=== PATIENT | male | born 1945 | race African-American/Black ===

== ENCOUNTER 2022-12-11 09:45 | Inpatient (IN) | payer OTHER ==
[2022-12-11] MEDS ORDERED: niCARdipine 25 MG/10 ML SDV ONE ×2 (10:01→12:12)
[2022-12-11 10:59] LABS: #Eosinphils 0.3 thou/uL (0.0-0.7); #Monocytes 0.4 thou/uL (0.11-0.59); #Neutrophils 3.7 thou/uL (1.40-6.50); %Basophils 0.6 % (0.0-1.0); %Eosinophils 4.5 % (0.0-10.0); %Lymphocytes 29.3 % (21.0-51.0); %Monocytes 6.4 % (0.0-10.0); %Neutrophils 58.9 % (42.0-75.0); Hematocrit 39.5 % (42.0-52.0); Hemoglobin 13.3 g/dL (14.0-18.0); Mean Corpuscular HGB CONC 33.7 g/dL (32.0-36.0); Mean Corpuscular Hemoglobin 30.7 pg (27.0-31.0); Mean Corpuscular Volume 91.2 fl (78.0-98.0); Mean Platelet Volume 10.7 fL (7.4-10.4); Platelet Count 192 10x3/uL (130-400); RBC Distribution Width 13.3 % (11.5-14.5); Red Blood Cell (RBC) Count 4.33 mill/uL (4.70-6.10); White Blood Cell (WBC) Count 6.3 10x3/uL (4.8-10.8)
[2022-12-11] MEDS ORDERED: Ipratropium/Albuterol 3 ML NEB NEB PRN (11:06)
[2022-12-11] MEDS ORDERED: Morphine 2 MG/ML VIAL SLOW IVP PRN (11:06)
[2022-12-11 11:15] LABS: INR-International Normal Ratio 1.1; PTT 31.9 sec (22.9-36.1); Prothrombin Time 15.1 sec (12.0-14.7)
[2022-12-11 11:25] LABS: ALT (SGPT) 12 U/L (8-55); AST (SGOT) 24 U/L (5-34); Albumin 3.9 g/dL (3.4-4.8); Alkaline Phosphatase 103 U/L (40-110); Anion Gap 11 mmol/L (10-20); BUN (Urea Nitrogen) 10 mg/dL (8.4-25.7); Bilirubin, Total 1.4 mg/dL (0.2-1.2); Calc. Creatinine Clearance 0 mL/min (70-130); Calcium 8.7 mg/dL (7.8-10.44); Carbon Dioxide 25 mmol/L (23-31); Chloride 106 mmol/L (98-107); Estimated GFR 64; Globulin 3.5 g/dL (2.4-3.5); Glucose 101 mg/dL (83-110); Magnesium 1.9 mg/dL (1.6-2.6); Potassium 3.6 mmol/L (3.5-5.1); Protein, Total 7.4 g/dL (5.8-8.1); Sodium 138 mmol/L (136-145)
[2022-12-11 11:29] LABS: Troponin I 0.011 ng/mL (< 0.028)
[2022-12-11] MEDS ORDERED: Magnevist 469MG/ML 20 ML VIAL ONE (11:29)
[2022-12-11] MEDS ORDERED: Furosemide 40 MG/4 ML VIAL SLOW IVP SCH (12:15)
[2022-12-11] MEDS: Ondansetron PF 4 MG/2 ML Vial IVP PRN (12:55)
[2022-12-11] MEDS: Sodium Chloride 0.9% 1,000 ML IV SCH ×2 (13:26→23:28)
[2022-12-11] MEDS: Acetaminophen 325 MG TAB PO SCH ×2 (13:27→17:11)
[2022-12-11 14:10] LABS: Bacteria/HPF None Seen HPF (None Seen); Bilirubin Negative (Negative); Blood, Urine Negative (Negative); CAUTI Indications for Culture Alt mental st,lethar; Clarity Clear (Clear); Glucose, Urine (Dipstick) 100 mg/dL (Negative); Ketone, Urine Negative (Negative); Leukocyte Negative Leu/uL (Negative); Nitrite Negative (Negative); Protein, Urine (Dipstick) 30 mg/dL (Neg-Trace); RBC/HPF 0-3 HPF (0-3); Specific Gravity, Urine 1.008 (1.002-1.036); Squamous Epithelial None Seen HPF (0-3); WBC/HPF 0-3 HPF (0-3)
[2022-12-11] MEDS ORDERED: Electrolyte Replacement Protocol 1 EACH FS SCH (14:10)
[2022-12-11 14:11] LABS: Urine Culture Reflex No No
[2022-12-11 14:13] LABS: Amphetamine Not Detected (NotDetected); Barbiturates Screen Not Detected (NotDetected); Benzodiazepine Screen Not Detected (NotDetected); Cocaine Metabolite Screen Not Detected (NotDetected); Methadone Not Detected (NotDetected); Methamphetamine Not Detected (NotDetected); Opiate Screen Not Detected (NotDetected); Oxycodone Screen Not Detected (NotDetected); Phencyclidine (PCP) Not Detected (NotDetected); THC/Cannabinoid Screen Not Detected (NotDetected); Tricyclic Screen Not Detected (NotDetected)
[2022-12-11 15:26] LABS: Potassium 3.2 mmol/L (3.5-5.1)
[2022-12-11] MEDS ORDERED: Magnesium 2 GM/50 ML(in water) 2 GM in Premix Bag 1 BAG IVPB SCH (17:00)
[2022-12-11] MEDS: Potassium Chloride 20 MEQ in Premix Bag 1 BAG IVPB SCH ×2 (17:01→19:24)
[2022-12-11] MEDS ORDERED: Famotidine 20 MG TAB PO SCH (21:00)
[2022-12-11] MEDS: Famotidine/PF 20 mg/2ml Vial SLOW IVP SCH (21:37)
[2022-12-12] MEDS: Acetaminophen 325 MG TAB PO SCH ×2 (02:33→06:26)
[2022-12-12] MEDS: niCARdipine 50 MG, Admixture Fee 1 EACH in Sodium Chloride 0.9% 250 ML 230 ML IV SCH (02:34)
[2022-12-12 04:24] LABS: #Monocytes 0.7 thou/uL (0.11-0.59); #Neutrophils 4.6 thou/uL (1.40-6.50); %Basophils 0.4 % (0.0-1.0); %Eosinophils 0.5 % (0.0-10.0); %Lymphocytes 29.5 % (21.0-51.0); %Monocytes 8.9 % (0.0-10.0); %Neutrophils 60.4 % (42.0-75.0); Hematocrit 37.6 % (42.0-52.0); Hemoglobin 12.8 g/dL (14.0-18.0); Mean Corpuscular Hemoglobin 30.4 pg (27.0-31.0); Mean Corpuscular Volume 89.3 fl (78.0-98.0); Mean Platelet Volume 11.1 fL (7.4-10.4); Platelet Count 200 10x3/uL (130-400); RBC Distribution Width 13.5 % (11.5-14.5); Red Blood Cell (RBC) Count 4.21 mill/uL (4.70-6.10); White Blood Cell (WBC) Count 7.6 10x3/uL (4.8-10.8)
[2022-12-12 04:56] LABS: INR-International Normal Ratio 1.2; PTT 30.9 sec (22.9-36.1)
[2022-12-12 04:58] LABS: Anion Gap 10 mmol/L (10-20); BUN (Urea Nitrogen) 9 mg/dL (8.4-25.7); Calc. Creatinine Clearance 66 mL/min (70-130); Calcium 8.3 mg/dL (7.8-10.44); Carbon Dioxide 24 mmol/L (23-31); Chloride 107 mmol/L (98-107); Estimated GFR 68; Glucose 88 mg/dL (83-110); Magnesium 2.1 mg/dL (1.6-2.6); Potassium 3.2 mmol/L (3.5-5.1); Sodium 138 mmol/L (136-145)
[2022-12-12] MEDS: Sodium Chloride 0.9% 1,000 ML IV SCH ×2 (06:13→13:26)
[2022-12-12] MEDS: Potassium Chloride 20 MEQ in Premix Bag 1 BAG IVPB SCH ×2 (06:31→08:25)
[2022-12-12] MEDS: Famotidine/PF 20 mg/2ml Vial SLOW IVP SCH ×2 (08:25→20:13)
[2022-12-12] MEDS ORDERED: Minoxidil 10 MG TAB PO SCH (10:15)
[2022-12-12] MEDS ORDERED: Carvedilol 25 MG TAB PO SCH (10:15)
[2022-12-12] MEDS ORDERED: Lisinopril 20 MG TAB PO SCH (10:15)
[2022-12-12] MEDS ORDERED: Labetalol HCl 100 MG/20 ML VIAL ONE (12:33)
[2022-12-12] MEDS: Acetaminophen 500 MG TAB PO SCH ×2 (13:26→18:15)
[2022-12-12] MEDS: Minoxidil 10 MG TAB PO SCH (20:09)
[2022-12-12] MEDS: Furosemide 20 MG TAB PO SCH (20:09)
[2022-12-12] MEDS: Terazosin HCl 1 MG CAP PO SCH (20:10)
[2022-12-12] MEDS: Atorvastatin Calcium 20 MG TAB PO SCH (20:11)
[2022-12-12] MEDS: Carvedilol 25 MG TAB PO SCH (20:11)
[2022-12-12] MEDS: Terazosin HCl 5 MG CAP PO SCH (20:20)
[2022-12-13] MEDS: Sodium Chloride 0.9% 1,000 ML IV SCH ×2 (01:01→05:26)
[2022-12-13] MEDS: Acetaminophen 500 MG TAB PO SCH ×5 (01:01→21:51)
[2022-12-13] MEDS: Ondansetron PF 4 MG/2 ML Vial IVP PRN (02:54)
[2022-12-13] MEDS: niCARdipine 50 MG, Admixture Fee 1 EACH in Sodium Chloride 0.9% 250 ML 230 ML IV SCH (03:55)
[2022-12-13] MEDS: Labetalol HCl 100 MG/20 ML VIAL SLOW IVP PRN ×2 (04:28→10:04)
[2022-12-13] MEDS: Levothyroxine Sodium 25 MCG TAB PO SCH (06:05)
[2022-12-13] MEDS: Lisinopril 20 MG TAB PO SCH (08:00)
[2022-12-13] MEDS: Minoxidil 10 MG TAB PO SCH ×2 (08:00→21:50)
[2022-12-13] MEDS: Famotidine/PF 20 mg/2ml Vial SLOW IVP SCH ×2 (08:00→21:48)
[2022-12-13] MEDS: Furosemide 20 MG TAB PO SCH ×2 (08:01→21:48)
[2022-12-13] MEDS: Potassium Chloride 10 MEQ TAB PO SCH (08:01)
[2022-12-13] MEDS: Carvedilol 25 MG TAB PO SCH ×2 (08:01→21:48)
[2022-12-13] MEDS: Amlodipine 10 MG TAB PO SCH (08:34)
[2022-12-13 08:49] LABS: Anion Gap 13 mmol/L (10-20); BUN (Urea Nitrogen) 11 mg/dL (8.4-25.7); Calc. Creatinine Clearance 65 mL/min (70-130); Calcium 8.5 mg/dL (7.8-10.44); Carbon Dioxide 20 mmol/L (23-31); Chloride 106 mmol/L (98-107); Estimated GFR 69; Glucose 108 mg/dL (83-110); Magnesium 1.9 mg/dL (1.6-2.6); Phosphorus 2.2 mg/dL (2.3-4.7); Potassium 3.5 mmol/L (3.5-5.1); Sodium 135 mmol/L (136-145)
[2022-12-13] MEDS ORDERED: Magnesium 2 GM/50 ML(in water) 2 GM in Premix Bag 1 BAG IVPB SCH (09:45)
[2022-12-13] MEDS ORDERED: Potassium Phosphate 30 MMOL in Sodium Chloride 0.9% 250 ML 250 ML IVPB SCH (12:00)
[2022-12-13] MEDS ORDERED: hydrALAZINE 20 MG/ML VIAL ONE (13:20)
[2022-12-13] MEDS: hydrALAZINE 25 MG TAB PO SCH ×2 (13:45→21:49)
[2022-12-13] MEDS ORDERED: hydrALAZINE 25 MG TAB PO SCH (13:45)
[2022-12-13] MEDS: Atorvastatin Calcium 20 MG TAB PO SCH (21:47)
[2022-12-13] MEDS: Terazosin HCl 5 MG CAP PO SCH (21:50)
[2022-12-13] MEDS: Terazosin HCl 1 MG CAP PO SCH (21:50)
[2022-12-14] MEDS: Levothyroxine Sodium 25 MCG TAB PO SCH (05:26)
[2022-12-14] MEDS: Acetaminophen 500 MG TAB PO SCH ×3 (05:26→17:52)
[2022-12-14 06:04] LABS: Anion Gap 12 mmol/L (10-20); BUN (Urea Nitrogen) 12 mg/dL (8.4-25.7); Calc. Creatinine Clearance 55 mL/min (70-130); Calcium 8.2 mg/dL (7.8-10.44); Carbon Dioxide 21 mmol/L (23-31); Chloride 106 mmol/L (98-107); Estimated GFR 56; Glucose 104 mg/dL (83-110); Phosphorus 3.1 mg/dL (2.3-4.7); Potassium 3.4 mmol/L (3.5-5.1); Sodium 136 mmol/L (136-145)
[2022-12-14] MEDS: hydrALAZINE 25 MG TAB PO SCH ×4 (08:55→21:24)
[2022-12-14] MEDS: Lisinopril 20 MG TAB PO SCH (08:55)
[2022-12-14] MEDS: Carvedilol 25 MG TAB PO SCH ×2 (08:55→21:22)
[2022-12-14] MEDS: Furosemide 20 MG TAB PO SCH ×2 (08:55→21:23)
[2022-12-14] MEDS: Amlodipine 10 MG TAB PO SCH (08:57)
[2022-12-14] MEDS: Famotidine/PF 20 mg/2ml Vial SLOW IVP SCH ×2 (08:57→21:22)
[2022-12-14] MEDS: Potassium Chloride 10 MEQ TAB PO SCH (08:57)
[2022-12-14] MEDS: Minoxidil 10 MG TAB PO SCH ×2 (08:58→21:24)
[2022-12-14] MEDS ORDERED: Magnesium 2 GM/50 ML(in water) 2 GM in Premix Bag 1 BAG IVPB SCH (09:00)
[2022-12-14] MEDS ORDERED: Potassium Chloride 20 MEQ TAB PO SCH (12:00)
[2022-12-14] MEDS ORDERED: Potassium Chloride 20 MEQ in Premix Bag 1 BAG IVPB SCH (14:00)
[2022-12-14] MEDS: Atorvastatin Calcium 20 MG TAB PO SCH (21:23)
[2022-12-14] MEDS: Terazosin HCl 1 MG CAP PO SCH (21:23)
[2022-12-14] MEDS: Terazosin HCl 5 MG CAP PO SCH (22:20)
[2022-12-15] MEDS: Acetaminophen 500 MG TAB PO SCH ×5 (04:12→22:59)
[2022-12-15] MEDS: Levothyroxine Sodium 25 MCG TAB PO SCH (05:57)
[2022-12-15] MEDS: Famotidine/PF 20 mg/2ml Vial SLOW IVP SCH ×2 (09:16→19:59)
[2022-12-15] MEDS: Amlodipine 10 MG TAB PO SCH (09:17)
[2022-12-15] MEDS: Furosemide 20 MG TAB PO SCH ×2 (09:17→19:59)
[2022-12-15] MEDS: Carvedilol 25 MG TAB PO SCH ×2 (09:17→19:59)
[2022-12-15] MEDS: hydrALAZINE 25 MG TAB PO SCH ×4 (09:17→19:58)
[2022-12-15] MEDS: Potassium Chloride 10 MEQ TAB PO SCH (09:17)
[2022-12-15] MEDS: Lisinopril 20 MG TAB PO SCH (09:17)
[2022-12-15] MEDS: Minoxidil 10 MG TAB PO SCH ×2 (10:16→19:58)
[2022-12-15] MEDS: Terazosin HCl 1 MG CAP PO SCH (19:58)
[2022-12-15] MEDS: Terazosin HCl 5 MG CAP PO SCH (19:58)
[2022-12-15] MEDS: Atorvastatin Calcium 20 MG TAB PO SCH (19:59)
[2022-12-16 04:01] VITALS: BMI 24.7
[2022-12-16] MEDS: Levothyroxine Sodium 25 MCG TAB PO SCH (05:16)
[2022-12-16] MEDS: Acetaminophen 500 MG TAB PO SCH ×4 (05:16→23:00)
[2022-12-16] MEDS: Amlodipine 10 MG TAB PO SCH (09:34)
[2022-12-16] MEDS: Carvedilol 25 MG TAB PO SCH ×2 (09:34→19:20)
[2022-12-16] MEDS: Minoxidil 10 MG TAB PO SCH ×2 (09:34→19:20)
[2022-12-16] MEDS: Furosemide 20 MG TAB PO SCH ×2 (09:34→19:20)
[2022-12-16] MEDS: Lisinopril 20 MG TAB PO SCH (09:34)
[2022-12-16] MEDS: hydrALAZINE 25 MG TAB PO SCH ×4 (09:34→19:20)
[2022-12-16] MEDS: Potassium Chloride 10 MEQ TAB PO SCH (09:35)
[2022-12-16] MEDS: Terazosin HCl 5 MG CAP PO SCH (19:20)
[2022-12-16] MEDS: Terazosin HCl 1 MG CAP PO SCH (19:20)
[2022-12-16] MEDS: Atorvastatin Calcium 20 MG TAB PO SCH (19:20)
[2022-12-17] MEDS: Acetaminophen 500 MG TAB PO SCH ×4 (05:58→21:49)
[2022-12-17] MEDS: Levothyroxine Sodium 25 MCG TAB PO SCH (05:58)
[2022-12-17] MEDS: Minoxidil 10 MG TAB PO SCH ×2 (09:37→21:51)
[2022-12-17] MEDS: Carvedilol 25 MG TAB PO SCH ×2 (09:38→21:51)
[2022-12-17] MEDS: Furosemide 20 MG TAB PO SCH ×2 (09:38→21:51)
[2022-12-17] MEDS: hydrALAZINE 25 MG TAB PO SCH ×4 (09:38→21:51)
[2022-12-17] MEDS: Potassium Chloride 10 MEQ TAB PO SCH (09:38)
[2022-12-17] MEDS: Lisinopril 20 MG TAB PO SCH (09:38)
[2022-12-17] MEDS: Amlodipine 10 MG TAB PO SCH (09:38)
[2022-12-17] MEDS: Terazosin HCl 5 MG CAP PO SCH (21:49)
[2022-12-17] MEDS: Terazosin HCl 1 MG CAP PO SCH (21:50)
[2022-12-17] MEDS: Atorvastatin Calcium 20 MG TAB PO SCH (21:51)
[2022-12-18] MEDS: Acetaminophen 500 MG TAB PO SCH ×4 (05:55→23:34)
[2022-12-18] MEDS: Levothyroxine Sodium 25 MCG TAB PO SCH (06:08)
[2022-12-18] MEDS: Minoxidil 10 MG TAB PO SCH ×2 (08:57→21:57)
[2022-12-18] MEDS: Furosemide 20 MG TAB PO SCH ×2 (08:57→21:58)
[2022-12-18] MEDS: Lisinopril 20 MG TAB PO SCH (08:57)
[2022-12-18] MEDS: Carvedilol 25 MG TAB PO SCH ×2 (08:58→21:58)
[2022-12-18] MEDS: Potassium Chloride 10 MEQ TAB PO SCH (08:58)
[2022-12-18] MEDS: hydrALAZINE 25 MG TAB PO SCH ×4 (08:58→21:58)
[2022-12-18] MEDS: Amlodipine 10 MG TAB PO SCH (08:58)
[2022-12-18] MEDS: Terazosin HCl 1 MG CAP PO SCH (21:57)
[2022-12-18] MEDS: Terazosin HCl 5 MG CAP PO SCH (21:57)
[2022-12-18] MEDS: Atorvastatin Calcium 20 MG TAB PO SCH (21:58)
[2022-12-19] MEDS: Acetaminophen 500 MG TAB PO SCH ×3 (06:09→18:36)
[2022-12-19] MEDS: Levothyroxine Sodium 25 MCG TAB PO SCH (06:09)
[2022-12-19] MEDS: Carvedilol 25 MG TAB PO SCH ×2 (09:00→21:33)
[2022-12-19] MEDS: hydrALAZINE 25 MG TAB PO SCH ×4 (09:00→21:34)
[2022-12-19] MEDS: Minoxidil 10 MG TAB PO SCH ×2 (09:31→21:33)
[2022-12-19] MEDS: Lisinopril 20 MG TAB PO SCH (09:31)
[2022-12-19] MEDS: Amlodipine 10 MG TAB PO SCH (09:31)
[2022-12-19] MEDS: Potassium Chloride 10 MEQ TAB PO SCH (09:31)
[2022-12-19] MEDS: Furosemide 20 MG TAB PO SCH ×2 (09:32→21:34)
[2022-12-19] MEDS: Terazosin HCl 5 MG CAP PO SCH (21:33)
[2022-12-19] MEDS: Atorvastatin Calcium 20 MG TAB PO SCH (21:33)
[2022-12-19] MEDS: Terazosin HCl 1 MG CAP PO SCH (21:33)
[2022-12-19 21:48] LABS: Troponin I 0.022 ng/mL (< 0.028)
[2022-12-20] MEDS: Acetaminophen 500 MG TAB PO SCH ×5 (00:50→23:41)
[2022-12-20] MEDS: Levothyroxine Sodium 25 MCG TAB PO SCH (06:37)
[2022-12-20] MEDS: Lisinopril 20 MG TAB PO SCH (09:20)
[2022-12-20] MEDS: Furosemide 20 MG TAB PO SCH ×2 (09:20→20:07)
[2022-12-20] MEDS: Potassium Chloride 10 MEQ TAB PO SCH (09:20)
[2022-12-20] MEDS: Amlodipine 10 MG TAB PO SCH (09:21)
[2022-12-20] MEDS: hydrALAZINE 25 MG TAB PO SCH ×4 (09:21→20:07)
[2022-12-20] MEDS: Carvedilol 25 MG TAB PO SCH ×2 (09:22→20:06)
[2022-12-20] MEDS: Minoxidil 10 MG TAB PO SCH ×2 (09:22→20:12)
[2022-12-20] MEDS: Atorvastatin Calcium 20 MG TAB PO SCH (20:06)
[2022-12-20] MEDS: Terazosin HCl 5 MG CAP PO SCH (20:07)
[2022-12-20] MEDS: Terazosin HCl 1 MG CAP PO SCH (20:07)
[2022-12-21] MEDS: Acetaminophen 500 MG TAB PO SCH ×4 (05:42→23:09)
[2022-12-21] MEDS: Levothyroxine Sodium 25 MCG TAB PO SCH (05:42)
[2022-12-21] MEDS: Furosemide 20 MG TAB PO SCH ×2 (08:19→20:04)
[2022-12-21] MEDS: Potassium Chloride 10 MEQ TAB PO SCH (08:19)
[2022-12-21] MEDS: Minoxidil 10 MG TAB PO SCH ×2 (08:20→20:04)
[2022-12-21] MEDS: Amlodipine 10 MG TAB PO SCH (08:20)
[2022-12-21] MEDS: hydrALAZINE 25 MG TAB PO SCH ×4 (15:20→20:07)
[2022-12-21] MEDS: Carvedilol 25 MG TAB PO SCH ×2 (15:20→20:05)
[2022-12-21] MEDS: Lisinopril 20 MG TAB PO SCH (15:21)
[2022-12-21] MEDS ORDERED: Amlodipine 10 MG TAB PO SCH (18:32)
[2022-12-21] MEDS: Terazosin HCl 5 MG CAP PO SCH (20:04)
[2022-12-21] MEDS: Atorvastatin Calcium 20 MG TAB PO SCH (20:04)
[2022-12-21] MEDS: Terazosin HCl 1 MG CAP PO SCH (20:04)
[2022-12-22] MEDS: Acetaminophen 500 MG TAB PO SCH ×3 (05:54→17:53)
[2022-12-22] MEDS: Levothyroxine Sodium 25 MCG TAB PO SCH (05:54)
[2022-12-22] MEDS: Carvedilol 25 MG TAB PO SCH (08:40)
[2022-12-22] MEDS: Lisinopril 20 MG TAB PO SCH (08:41)
[2022-12-22] MEDS: Minoxidil 10 MG TAB PO SCH (08:41)
[2022-12-22] MEDS: Furosemide 20 MG TAB PO SCH (08:41)
[2022-12-22] MEDS: Potassium Chloride 10 MEQ TAB PO SCH (08:41)
[2022-12-22] MEDS: hydrALAZINE 25 MG TAB PO SCH ×3 (08:41→17:53)
[2022-12-22 11:46] VITALS: TEMP 98.4
[2022-12-22 15:36] VITALS: BP 148/61
== END 2022-12-22 20:02 | DRG 82 ==
LOC: ERS 09:45 → EEVIPCON 09:45 → CCU 11:02 → SURG A 12-14 03:59
PROVIDERS: ADMIT Surgery; ATTEND Surgery
DX: S06.5XAA Traumatic subdural hemorrhage with loss of consciousness status unknown, initial encounter (principal); J81.0 Acute pulmonary edema; I16.1 Hypertensive emergency; K21.9 Gastro-esophageal reflux disease without esophagitis; E78.5 Hyperlipidemia, unspecified; I10 Essential (primary) hypertension; E03.9 Hypothyroidism, unspecified; K74.00 Hepatic fibrosis, unspecified; N40.0 Benign prostatic hyperplasia without lower urinary tract symptoms; R40.2410 Glasgow coma scale score 13-15, unspecified time; W18.30XA Fall on same level, unspecified, initial encounter; Z79.82 Long term (current) use of aspirin; Z79.890 Hormone replacement therapy; Z79.899 Other long term (current) drug therapy; Z86.73 Personal history of transient ischemic attack (TIA), and cerebral infarction without residual deficits
CPT/HCPCS: 36415; 36416; 51702; 70450; 70553; 71045; 72125; 80048; 80053; 80306; 81001; 83735; 83880; 84100; 84443; 84484; 85025; 85610; 85730; 86850; 86900; 86901; 93005; 93010; 93306; 93880; 93970; 94760; 96365; 96366; A9579; J0360; J1940; J2405; J3475; J3480; J7050; S0028